=== PATIENT | male | born 1960 | race Caucasian/White ===

== ENCOUNTER 2018-05-12 08:34 | Emergency (ER) | payer OTHER ==
[~2018-05-12 08:34] MED LIST: Sodium Chloride 0.9% 1,000 ML BAG ONE
[2018-05-12 09:14] LABS: Bilirubin Negative (Negative); Blood, Urine Moderate (Negative); Clarity Clear (Clear); Glucose, Urine (Dipstick) Negative (Negative); Leukocyte Negative (Negative); Nitrite Negative (Negative); Protein, Urine (Dipstick) Trace mg/dL (Neg-Trace); Urobilinogen 0.2 mg/dL (0.2-1.0)
[2018-05-12 09:15] LABS: Specific Gravity, Urine 1.028 (1.002-1.036); Squamous Epithelial 0-3 HPF (0-3); WBC/HPF 0-3 HPF (0-3)
[2018-05-12 09:16] LABS: Bacteria/HPF Rare-Few HPF (None Seen)
[2018-05-12] MEDS ORDERED: Ketorolac Tromethamine 30 MG/ML VIAL ONE (09:16)
--- NOTE | 2018-05-12 10:31 | CT ---
NONCONTRAST CT ABDOMEN AND PELVIS: 05/12/2018 HISTORY: Right flank pain since last night. FINDINGS: The lung bases are clear. The liver, spleen, pancreas, bilateral adrenal glands, and kidneys demonstrate a grossly normal nonen hanced CT appearance. No renal or ureteral calculi are seen bilaterally, and there is no evidence of hydronephrosis. The urinary bladder is decompressed and not well evaluated on this exam. The appendix is not visualized, but there is suture material along the cecal apex, which may be relat ed to a prior appendectomy. Vascular calcifications are seen in the abdominal aorta and involving the iliac arteries. Degenerative changes are present in the spine. IMPRESSION: 1. No renal or ureteral calculi are seen bilaterally. 2. Degenerative changes in the spine. POS: [facility]
== END 2018-05-12 10:32 | disposition home or self-care (01) ==
LOC: MADERS 08:34
DX: S29.012A Strain of muscle and tendon of back wall of thorax, initial encounter (principal); R31.9 Hematuria, unspecified; F17.210 Nicotine dependence, cigarettes, uncomplicated; X58.XXXA Exposure to other specified factors, initial encounter
CPT/HCPCS: 74176; 81003; 81015; 87086; 96361; 96374; J1885; J7050

== ENCOUNTER 2018-06-30 17:04 | Emergency (ER) | payer BC, OTHER ==
[~2018-06-30 17:04] MED LIST changes: -Sodium Chloride 0.9% 1,000 ML BAG ONE; +Sodium Chloride Irrig Solution 250 ML BOT ONE
[2018-06-30] MEDS ORDERED: Triple Antibiotic Oint 1 GM Packet ONE (17:25)
== END 2018-06-30 17:40 | disposition home or self-care (01) ==
LOC: MADERS 17:04
DX: S01.03XA Puncture wound without foreign body of scalp, initial encounter (principal); S50.811A Abrasion of right forearm, initial encounter; F17.210 Nicotine dependence, cigarettes, uncomplicated; W17.89XA Other fall from one level to another, initial encounter
CPT/HCPCS: 99283

== ENCOUNTER 2019-04-22 22:16 | Emergency (ER) | payer BC, OTHER, SELFPAY ==
[~2019-04-22 22:16] MED LIST changes: +Iopamidol 370 76% 100 ML VIAL ONE; -Sodium Chloride Irrig Solution 250 ML BOT ONE
[2019-04-22] MEDS ORDERED: Sodium Chloride 0.9% 1,000 ML ONE (22:50)
[2019-04-22] MEDS ORDERED: Piperacillin/Tazobactam 3.375 GM VIAL ONE (22:50)
[2019-04-22] MEDS ORDERED: Sodium Chloride 0.9% 100 ML ONE (22:51)
[2019-04-22] MEDS ORDERED: Sodium Chloride 0.9% 250 ML 250 ML ONE (22:51)
[2019-04-22 23:08] LABS: Anion Gap 16 mmol/L (10-20); BUN (Urea Nitrogen) 12 mg/dL (8.4-25.7); Calc. Creatinine Clearance 0 mL/min (70-130); Carbon Dioxide 22 mmol/L (22-29); Chloride 106 mmol/L (98-107); Estimated GFR-MDRD 82; Glucose 182 mg/dL (70-105); Potassium 3.2 mmol/L (3.5-5.1); Sodium 141 mmol/L (136-145)
[2019-04-22 23:10] LABS: Eosinophils 1 % (0-10); Hemoglobin 14.9 g/dL (14.0-18.0); Lymphocytes 23 % (21-51); MDiff Complete? YES; Mean Corpuscular HGB CONC 33.6 g/dL (32.0-36.0); Mean Corpuscular Hemoglobin 30.2 pg (27.0-31.0); Mean Platelet Volume 6.6 fL (7.4-10.4); Monocytes 4 % (0-10); Neutrophil 68 % (42-75); Platelet Count 289 thou/uL (130-400); Platelet Morphology Comment Appears Adequate; RBC Distribution Width 11.6 % (11.5-14.5); RBC Morphology Normal; Reactive Lymphocytes 4 % (0-10); Red Blood Cell (RBC) Count 4.92 mill/uL (4.70-6.10); White Blood Cell (WBC) Count 15.8 thou/uL (4.8-10.8)
--- NOTE | 2019-04-22 23:25 | CT ---
EXAM: CT ABDOMEN AND PELVIS HISTORY: Evaluate for abdominal abscess. COMPARISON: 05/12/2018 Procedure: Multiple contiguous axial images were obtained and a CT of the abdomen and pelvis with IV contrast. C oronal reformats were performed. FINDINGS: Lower Chest: within normal limits. Vessels: Normal caliber aorta Heart: Normal heart size Abdomen: Portal vein:Patent Gallbladder: No calcified gallstones. Normal caliber wall. Liver: 5 mm hypodensity in the right hepatic lobe. No enhancing masses. Pancreas: within normal limits. Spleen: within normal limits. Adrenals: within normal limits. Kidneys: Symmetric enhancement. 0.9 cm hypodensity in the right renal cortex small to further charact erize. Bilaterally no obstructive uropathy. Peritoneum: No ascites or free air, no fluid collection. Bowel: Limited evaluation due to lack of oral contrast. No evidence of bowel obstruction. Ileocecal j unction is normal. Findings suggesting previous appendectomy. Unremarkable colon. Scattered fecal material is noted. Mesentery and Retroperitoneum: No enlarged mesenteric or retroperitoneal lymph nodes. Abdominal Wall: Stranding of the anterior right abdominal wall subcutaneous fat and thickening of the overlying dermis. Focal inflammatory change (cellulitis) directed. No evidence of a drainable abscess. Inflammatory changes measure approximately 5.1 cm. Pelvis: Reproductive Organs: No pelvic masses. Pelvis: within normal limits. Bladder: within normal limits. Bones: within normal limits. IMPRESSION: 1. Inflammatory change with cellulitis involving the anterior right abdominal wall. No evidence of a drainable abscess. 2. No evidence of obstructive uropathy. 3. No evidence of bowel obstruction.
== END 2019-04-23 01:18 | disposition home or self-care (01) ==
LOC: MADERS 22:16
DX: L03.311 Cellulitis of abdominal wall (principal); F17.210 Nicotine dependence, cigarettes, uncomplicated
CPT/HCPCS: 36415; 74177; 80048; 83605; 85025; 96365; 96366; 96367; J2543; J3370; J3490; J7050; Q9967

== ENCOUNTER 2021-03-21 09:21 | Emergency (ER) | payer BC ==
[2021-03-21] MEDS ORDERED: Lidocaine 1% w/Epinephrine 1:100K 20 ML VIAL ONE (10:03)
[2021-03-21] MEDS ORDERED: Boostrix 0.5 ML (Tdap) VIAL ONE (10:03)
== END 2021-03-21 10:57 | disposition home or self-care (01) ==
LOC: MADERS 09:21
DX: S62.522A Displaced fracture of distal phalanx of left thumb, initial encounter for closed fracture (principal); S61.002A Unspecified open wound of left thumb without damage to nail, initial encounter; Z23 Encounter for immunization; F17.210 Nicotine dependence, cigarettes, uncomplicated; W23.0XXA Caught, crushed, jammed, or pinched between moving objects, initial encounter
CPT/HCPCS: 12001; 90471; 90715

== ENCOUNTER 2021-08-06 17:49 | Outpatient (CLI) | payer BC | END 2021-08-06 17:50 | disposition home or self-care (01) | LOC: MADRAD 17:49 | PROVIDERS: ATTEND Family Medicine | DX: J45.909 Unspecified asthma, uncomplicated (principal) | CPT/HCPCS: 71046 ==

== ENCOUNTER 2022-05-22 19:33 | Emergency (ER) | payer BC ==
[2022-05-22 20:17] LABS: #Basophils 0.2 thou/uL (0.0-0.2); #Eosinphils 0.4 thou/uL (0.0-0.7); #Lymphocytes 3.9 thou/uL (1.20-3.40); #Monocytes 0.8 thou/uL (0.11-0.59); %Basophils 1.7 % (0.0-1.0); %Eosinophils 3.5 % (0.0-10.0); %Monocytes 6.2 % (0.0-10.0); %Neutrophils 56.6 % (42.0-75.0); Hemoglobin 15.6 g/dL (14.0-18.0); Mean Corpuscular Hemoglobin 32.2 pg (27.0-31.0); Mean Corpuscular Volume 94.9 fL (78.0-98.0); Mean Platelet Volume 8.2 fL (7.4-10.4); Platelet Count 208 thou/uL (130-400); RBC Distribution Width 11.8 % (11.5-14.5); Red Blood Cell (RBC) Count 4.83 mill/uL (4.70-6.10); White Blood Cell (WBC) Count 12.3 thou/uL (4.8-10.8)
[2022-05-22] MEDS ORDERED: Nitroglycerin 2% Ointment 1 INCH/1 GM Packet ONE (20:20)
[2022-05-22] MEDS ORDERED: Aspirin Chewable 81 MG TAB ONE (20:20)
[2022-05-22 20:37] LABS: ALT (SGPT) 44 U/L (8-55); AST (SGOT) 21 U/L (5-34); Albumin 4.1 g/dL (3.5-5.0); Alkaline Phosphatase 63 U/L (40-110); Anion Gap 14 mmol/L (10-20); BUN (Urea Nitrogen) 17 mg/dL (8.4-25.7); Bilirubin, Total 0.7 mg/dL (0.2-1.2); Calc. Creatinine Clearance 0 mL/min (70-130); Calcium 9.1 mg/dL (7.8-10.44); Carbon Dioxide 24 mmol/L (22-29); Chloride 107 mmol/L (98-107); Estimated GFR 104; Glucose 102 mg/dL (70-105); Lipase 41 U/L (8-78); Potassium 4.2 mmol/L (3.5-5.1); Protein, Total 6.1 g/dL (6.0-8.3); Sodium 141 mmol/L (136-145)
[2022-05-22 23:38] LABS: Troponin I Less than 0.010 ng/mL (< 0.028)
== END 2022-05-23 | disposition home or self-care (01) ==
LOC: MADERS 19:33
DX: R07.89 Other chest pain (principal); R06.02 Shortness of breath; M19.012 Primary osteoarthritis, left shoulder; M19.011 Primary osteoarthritis, right shoulder; F17.210 Nicotine dependence, cigarettes, uncomplicated; Z79.899 Other long term (current) drug therapy
CPT/HCPCS: 71045; 80053; 83690; 84484; 85025; 93005

== ENCOUNTER 2023-03-11 10:06 | Emergency (ER) | payer BC, OTHER ==
[2023-03-11 11:34] LABS: #Basophils 0.1 thou/uL (0.0-0.2); #Eosinphils 0.3 thou/uL (0.0-0.7); #Lymphocytes 2.5 thou/uL (1.20-3.40); #Monocytes 0.6 thou/uL (0.11-0.59); #Neutrophils 5.7 thou/uL (1.40-6.50); %Eosinophils 3.8 % (0.0-10.0); %Lymphocytes 26.9 % (21.0-51.0); %Monocytes 6.6 % (0.0-10.0); %Neutrophils 61.8 % (42.0-75.0); Hemoglobin 15.2 g/dL (14.0-18.0); Mean Corpuscular HGB CONC 34.2 g/dL (32.0-36.0); Mean Corpuscular Hemoglobin 32.4 pg (27.0-31.0); Mean Corpuscular Volume 94.8 fl (78.0-98.0); Platelet Count 210 10x3/uL (130-400); RBC Distribution Width 11.5 % (11.5-14.5); Red Blood Cell (RBC) Count 4.69 mill/uL (4.70-6.10); White Blood Cell (WBC) Count 9.2 10x3/uL (4.8-10.8)
[2023-03-11] MEDS ORDERED: Dicyclomine 10 MG CAP ONE (11:35)
[2023-03-11] MEDS ORDERED: Famotidine/PF 20 mg/2ml Vial ONE (11:35)
[2023-03-11 11:45] LABS: ALT (SGPT) 86 U/L (8-55); AST (SGOT) 40 U/L (5-34); Alkaline Phosphatase 64 U/L (40-110); Anion Gap 13 mmol/L (10-20); BUN (Urea Nitrogen) 10 mg/dL (8.4-25.7); Bilirubin, Total 0.9 mg/dL (0.2-1.2); Calc. Creatinine Clearance 0 mL/min (70-130); Carbon Dioxide 25 mmol/L (23-31); Chloride 105 mmol/L (98-107); Estimated GFR 104; Globulin 2.4 g/dL (2.4-3.5); Glucose 104 mg/dL (80-115); Lipase 19 U/L (8-78); Potassium 3.6 mmol/L (3.5-5.1); Protein, Total 6.4 g/dL (5.8-8.1); Sodium 139 mmol/L (136-145)
== END 2023-03-11 13:45 | disposition home or self-care (01) ==
LOC: MADERS 10:06
DX: K92.2 Gastrointestinal hemorrhage, unspecified (principal); K21.9 Gastro-esophageal reflux disease without esophagitis; I10 Essential (primary) hypertension; F17.210 Nicotine dependence, cigarettes, uncomplicated; Z79.899 Other long term (current) drug therapy
CPT/HCPCS: 74177; 80053; 82274; 83690; 85025; 96374; S0028